=== PATIENT | female | born 1960 | race Caucasian/White ===

== ENCOUNTER 2018-12-31 15:07 | Outpatient (REF) | payer BC, SELFPAY ==
--- NOTE | 2018-12-31 14:00 | PAPFT_PTH ---
PATIENT: Makenna Darling LOC: [facility] U#:[id number] AGE/SX: 58/F ROOM: RE12/31/[address]: Lina Sepulveda : 1960 BED: DIS: 12/31/2018 SPEC #: [id number] RECD: 12/31/18 17:05 STATUS: RADHA TURCIOS #: [id number] ELI: 12/31/18 14:[address]: Lina Sepulveda DEPT: [facility] Cytology RECD BY: Jewels Aden ENTERED: 12/31/18 17:05 SP TYPE: PAPFT OTHR DR: Neftali Wood Tissues: 1 - CX/ENDOCX FOR PAP SMEARS Procedures: PAP THIN PREP/[facility] Screening HPV DNA PROBE Comments: [id number]
== END 2018-12-31 15:27 ==
LOC: LBN 15:07
PROVIDERS: PCP Internal Medicine; Visit Provider Obstetrics & Gynecology Gynecology
DX: Z12.4 Encounter for screening for malignant neoplasm of cervix (principal); Z11.51 Encounter for screening for human papillomavirus (HPV)
CPT/HCPCS: 88142; 87624

== ENCOUNTER 2019-02-04 02:25 | Outpatient (CLI) | payer BC, SELFPAY ==
--- NOTE | 2019-02-04 15:30 | DI.MAMMO_ITS ---
SYMPTOMS/DIAGNOSIS: SCREENING, Z12.31 MAMMOGRAMS: Mammograms were interpreted according to the usual protocol including computer analysis with CAD system, tomosynthesis and C view imaging. The breasts are of moderate density with fairly symmetrical distribution of fibroglandular tissue. No dominant mass or clumped microcalcification is identified in either breast. Current examination is compared with the previous examinations including October 2017 and there has been no gross interval change in appearance in comparison with the previous studies. CONCLUSION: No specific evidence of malignancy at this time. Routine screening examinations are suggested at yearly intervals due to the family history of breast carcinoma. Category 1, breast density category B. MQSA ASSESSMENT OF FINDINGS: Negative. Category 1. Patient will receive a letter notifying them of these results. BI-RADS category B. There are scattered areas of fibroglandular density.
== END 2019-02-04 02:45 ==
PROVIDERS: PCP Internal Medicine; Visit Provider Obstetrics & Gynecology Gynecology
DX: Z12.31 Encounter for screening mammogram for malignant neoplasm of breast (principal); Z80.3 Family history of malignant neoplasm of breast
CPT/HCPCS: 77063; 77067

== ENCOUNTER 2020-05-25 03:38 | Outpatient (CLI) | payer BC, SELFPAY ==
--- NOTE | 2020-05-25 14:30 | DI.MAMMO_ITS ---
EXAM: MG MAMMO SCREENING CLINICAL HISTORY: screening TECHNIQUE: Bilateral full field digital CC and MLO mammographic images were obtained with 3D tomosyn thesis and utilizing computer aided detection (CAD). COMPARISON: Available for comparison. FINDINGS: Masses/Architectural Distortion: None seen. Microcalcifications: No suspicious pleomorphic-type are seen. Skin Thickening/Nipple Retraction: None. IMPRESSION: 1. No significant interval change with no specific features of malignancy noted. 2. Unless there is more urgent need, screening mammography is recommended, as per [employer] guidelines. BI-RADS Category 1 - Negative Breast Density - Category B - Scattered areas of fibroglandular density A negative radiographic report should not delay biopsy if a dominant or clinically suspicious mass is present. Up to ten percent of cancers are not identified on mammography. A negative report may reinforce clinical impression. Adenosis and dense breasts may obscure an underlying neoplasm. False positive reports average 6 to 10%. Patient will receive a letter notifying them of these results.
== END 2020-05-25 03:58 ==
PROVIDERS: PCP Internal Medicine; Visit Provider Nurse Practitioner Family
DX: Z12.31 Encounter for screening mammogram for malignant neoplasm of breast (principal); R92.2 Inconclusive mammogram
CPT/HCPCS: 77063; 77067

== ENCOUNTER 2021-09-09 21:27 | Outpatient (REF) | payer BC, SELFPAY | END 2021-09-09 21:28 | disposition home or self-care (01) | LOC: LBN 21:27 | PROVIDERS: PCP Internal Medicine; Visit Provider Obstetrics & Gynecology Gynecology | DX: R30.0 Dysuria (principal) | CPT/HCPCS: 87086 ==

== ENCOUNTER 2021-10-03 00:44 | Outpatient (CLI) | payer BC, SELFPAY ==
--- OUTSIDE RECORDS SUMMARY | 2021-10-03 00:47 | XMS_ITS ---
:1960 Author Care Team Providers Name Role Phone NARGIS OVALLE MD General Surgeon [phone] KAYE PHELPS MD Oil Heat Technician [phone] NEFTALI LEMUS DO Primary Care Provider [phone] Allergies Code Code System Name Reaction Severity Status Onset 241106 RxNorm Bactrim Other ? Active ? 57476 RxNorm Benzonatate Other ? Active ? 612758 RxNorm Cipro Hives ? Active ? Penicillins Rash ? Active ? 706452 RxNorm Plavix Rash ? Active ? Notes: No seafood allergy. No co ntrast allergy. Medications Name Status Start Date Stop Date ? ? Afluria Qd 2018- (36 mos Completed ? 12/02 up)(PF)60 mcg (15 mcg x4)/0.5 mL IM syringe amoxicillin 500 mg capsule Completed 07/24/200607/24 1 (one) Cap: three times a day aspirin 325 mg tablet Active ? Not availa ble Take 0.5 tablets every day by oral route in the morning. aspirin 81 mg tablet,delayed release Completed ? 08/02/2020 Take 2 tablets every day by oral route. atorvastatin 20 mg tablet Active ? Not av ailable 1 (one) Tablet: daily atorvastatin 40 mg tablet Active ? Not av ailable 1 tablet every day by oral route Aygestin 5 mg tablet Completed 01/16/2012 01/16/2012 1-3 Tablet: daily azithromycin 250 mg tablet Completed ? 06/22 Bactrim DS 800 mg-160 mg tablet Completed 11/25/2007 12/02/2007 1 (one) Tablet: Twice daily bupropion HCl SR 200 mg tablet,12 hr sustained-release Active ? Not available TAKE ONE TABLET BY MOUTH EVERY DAY DIRECTED cefuroxime axetil 500 mg tablet Active ? Not available cetirizine 10 mg tablet Active ? Not avai lable Take 1 tablet every day by oral route for 30 days. Cipro 500 mg tablet Completed 05/15/2010 05/22/2010 1 (one) Tablet: Twice daily ciprofloxacin 250 mg tablet Completed ? 11/04 codeine 10 mg-guaifenesin 100 mg/5 mL oral liquid Completed ? 06/22/2018 Take 10 mL every 6 hours by oral route as needed. doxycycline hyclate 100 mg tablet Completed ? 06/22/2018 doxycycline monohydrate 100 mg Completed ? 0 06/22/2018 capsule E-Z Spacer Completed 04/14/2011 04/14/2011 1 (one) Device: as needed ezetimibe 10 mg tablet Active ? Not avail able Take 1 tablet(s) every day by oral route. Flovent HFA 110 mcg/actuation aerosol inhaler Completed 04/14/2011 2 (two) puff(s): two times daily fluticasone propionate 50 Active ? Not av ailable mcg/actuation nasal spray,suspension folic acid 400 mcg tablet Active ? Not av ailable Take 1 tablet every day by oral route in the morning. FreeStyle Test strips Active ? Not availa ble USE AND DISCARD 1 TEST STRIP 4-6 TIMES A DAY DIRECTED Humalog U-100 Insulin Active ? Not availa ble 70 units /day SQ via continuous insulin pump with carb of 1-10 per [facility] endocrinology Humalog U-100 Insulin 100 unit/mL subcutaneous solution Active ? Not available INJECT 70 UNITS SUBCUTANEOU SLY PER DAY AND NEEDED VIA CONTINUOUS INSULIN PUMP WITH 1-10 GRAMS OF CARBOHYDRATES Iron (ferrous sulfate) 325 mg (65 mg iron) tablet Completed 01/16/2012 01/16/2012 1 Tablet: daily Keflex 500 mg capsule Completed 01/01/2005 04/04/2005 1 (one) Cap: TID levofloxacin 500 mg tablet Completed ? 06/22 levothyroxine 150 mcg tablet Active 06/19/2021 Not available Take 1 tablet every day by oral route. levothyroxine 175 mcg tablet Completed ? lisinopril 10 mg tablet Active ? Not avai lable TAKE ONE TABLET BY MOUTH EVERY DAY lisinopril 20 mg tablet Completed ? 12/15/19 19 0.5 tablets once a day loratadine Completed ? 06/22/2018 Twice a day lorazepam 0.5 mg tablet Active ? Not avai lable 1 tablet as needed prior to flying meclizine 25 mg tablet Completed 09/23/2011 1 1 (one) Tablet: three times daily, as needed metoprolol tartrate 50 mg tablet Active ? Not available TAKE ONE TABLET BY MOUTH TWICE A DAY multivitamin Active ? Not available Take 1 tablet every morning nitrofurantoin Completed ? 12/02/2019 monohydrate/macrocrystals 100 mg capsule nitroglycerin 0.4 mg sublingual tablet Completed 8 02/07/2011 1 (one) SL Tab: Q 5 MIN X 3 PRN omeprazole 20 mg capsule,delayed release Active ? Not available Take 1 capsule every day by oral route. OTC OneTouch Ultra Blue Test Strip Completed 03/22/2009 0 11/09/2009 1 Strip: daily and as directed pen needle, diabetic 31 gauge x 5/16 Completed 03/13/2009 11/09/2009 1 (one) Misc: as directed phenazopyridine 200 mg tablet Completed ? prednisone 20 mg tablet Completed 03/20/2017 03/26/20 17 1 (one) Tablet: as directed prochlorperazine maleate 10 mg tablet Completed 10/10/2008 10/10/2008 1 (one) Tablet: Two times daily as needed for nausea Pyridium 100 mg tablet Completed 06/20/2013 3 1 Tablet: tid - three times a day Shingrix (PF) 50 mcg/0.5 mL Completed ? 11/04 intramuscular suspension, kit simvastatin 20 mg tablet Completed 01/04/2016 016 1 (one) Tablet: at bedtime tobramycin 0.3 %-dexamethasone Completed ? 0 07/29/2019 0.1 % eye drops,suspension triamcinolone acetonide 0.1 % topical cream Active ? Not available APPLY A THIN LAYER TOPICALLY TO AFFECTED AREA(S) TWO TIMES A DA Y Victoza 2-Blaze 0.6 mg/0.1 mL (18 mg/3 mL) subcutaneous pen in jector Completed 02/02/2015 02/22/2016 1.8 Soln Pen-inj: every day Vitamin B-6 100 mg tablet Active ? Not av ailable Take 1 tablet every day by oral route in the morning. Vitamin B12 500 mcg tablet Active ? Not a vailable Take 1 tablet every day by oral route in the morning. Vitamin D3 25 mcg (1,000 unit) capsule Active ? Not available Take 2 capsules every day by oral route in the morning. Xopenex HFA 45 mcg/actuation aerosol inhaler Completed 04/14/2011 1-2 (one to two) Puff(s): four times daily, as needed Problems Name Status Onset Date Source ? Pain of Left Shoulder Joint Active 07/29/2019 ? Hypothyroidism Active ? History Disorder of Kidney Due to Diabetes Active ? History Mellitus Diabetes Mellitus Unknown ? History Hyperlipidemia Active ? History Hypocalcemia Unknown ? History Simple Obesity Active ? History Anemia Active ? History Carpal Tunnel Syndrome Active ? History Neuropathy Due to Diabetes Mellitus Active ? History Hypertensive Disorder Active ? History Chronic Ischemic Heart Disease Active ? H istory Sinusitis Unknown ? History Allergic Rhinitis Active ? History Disorder of Upper Respiratory System Unknown ? History Cystitis Active ? History Onycholysis Unknown ? History Epidermoid Cyst of Skin Active ? History Lack of Energy Unknown ? History Cough Unknown ? History History of Urinary Tract Infection Unknown ? History Adult Health Examination Unknown ? History SNOMED CT Concept Unknown ? History Urogenital Finding Unknown ? History Foreign Body in Left Ear Unknown ? History Atherosclerosis of Coronary Artery Active ? History without Angina Pectoris Impingement Syndrome of Left Shoulder Active ? History Region Difficulty Speaking Unknown ? History Finding of Esophagus Unknown ? History Hyperglycemia Due to Type 1 Diabetes Active ? History Mellitus Enzyme Level - Finding Unknown ? History Pain of Right Shoulder Joint Active ? His tory Tendon Finding Unknown ? History Procedures Date Name Performed by ? 08/10/2020 Trigger FInger Information not avai lable Notes: R 3rd digit A1 alexis release 09/12/2019 Cyst Excision Information not avai lable Notes: Done in OR, right axillary cys t. 12/18/2017 Colonoscopy Information not avai lable Notes: polyp 09/19/2016 Trigger FInger Information not avai lable Notes: left middle finger 04/02/2001 Cardiac Catheterization Information not available ? Thyroidectomy Information not avai lable 06/22/2018 CT, Sinuses, W/o Contrast [facility] Rad[facility] (Internal) [address], [place] [address] (Work Place) 11/08/2018 US, Abdomen, Limited [facility] (Internal) [address], [place] [id number] (Work Place) 07/29/2019 XR, Shoulder, [address] [facility] Radiology (Internal) [address] [place] [address] (Work [address]) 08/15/2019 US, Bladder [facility]) [address] [place] [address] (Work [address]) 01/23/2020 XR, Chest, 2 View [facility] [address] [place] [address] (Work Place) 01/23/2020 XR, Chest, 1 View [facility] ([facility]) [address] [place] [address] (Work Place) Results Lab Results Date Name Specimen Result Interpretation Description Value Range Status Address ? 01/08/2021 HbA1C BLD High Ha1C 9.7 % 4.0-6.0 % Final [facility] (Hemoglobin Count ry a1C), Blood Hospi [facility] Lab (Internal) : [address] 01/08/2021 Lipid Panel, S ? Chol 109 50-200 Final [facility] Serum mg/dL mg/dL [facility] ([facility] : [address] ? ? S ? Trig 113 10-150 Final [facility] mg/dL mg/dL [facility] L [facility] (Internal) : [address] ? ? S Low Hdl 30 40-60 Final [facility] mg/dL mg/dL [facility] (Internal) : [address] ? ? S ? Ldl 56 0-130 Final [facility] mg/dL mg/dL [facility] (Internal) : [address] 01/08/2021 Hepatic S ? Tbil 0.6 0.2-1.3 Final Nort h Function mg/dL mg/dL [facility] Panel, Serum Hosp ital Lab (Internal) : [address] ? ? S ? Dbil 0.1 0.0-0.3 Final [facility] mg/dL mg/dL [facility] (Internal) : [address] ? ? S ? Alp 104 U/L 38-126 Final [facility] U/L [facility] (Internal) : [address] ? ? S High Alt 74 U/L 9-52 U/L Final [place] (Sgpt) [facility] (Internal) : [address] ? ? S High Ast 51 U/L 14-36 U/L Final [place] (Sgot) [facility] ([facility] : [address] ? ? S ? Ggt 28 U/L 12-43 U/L Final [facility] (Internal) : [address] ? ? S ? Tp 7.1 6.3-8.2 Final [facility] g/dL g/dL [facility] ([facility] : [address] ? ? S ? Alb 4.1 3.5-5.0 Final [facility] g/dL g/dL [facility] ([facility] : [address] 01/08/2021 BMP, Serum or S High g/r 179 74-106 Final [facility] Plasma mg/dL mg/dL [facility] ([facility] : [address] ? ? S High Bun 18 7-17 Final [facility] mg/dL mg/dL [facility] (Internal) : [address] ? ? S ? Crea 1.00 0.52-1.04 Final [facility] mg/dL mg/dL [facility] (Internal[facility] : [address] ? ? S ? Ca 8.6 8.4-10.2 Final [facility] mg/dL mg/dL [facility] (Internal) : [address] ? ? S ? Na 139 137-145 Final [facility] mmol/L mmol/L [facility] (Internal) : [address] ? ? S ? K 4.4 3.5-5.1 Final [facility] mmol/L mmol/L [facility] (Internal) : [address] ? ? S ? Cl 99 98-107 Final [facility] mmol/L mmol/L [facility] ([facility]) : [address] ? ? S ? Tco2 29.0 22.0-30.0 Final [facility] mmol/L mmol/L [facility] (Internal[facility] : [address] 10/10/2020 EKG Done by ? No ? ? ? N orth Lab observat [facility] recorded (Interna l): . [address] 10/05/2020 Lipid Panel, S ? Chol 103 50-200 Final [facility] Serum mg/dL mg/dL [facility] (Internal) : [address] ? ? S ? Trig 85 10-150 Final [facility] mg/dL mg/dL [facility] (Internal) : [address] ? ? S Low Hdl 34 40-60 Final [facility] mg/dL mg/dL [facility] (Internal) : [address] ? ? S ? Ldl 52 0-130 Final [facility] mg/dL mg/dL [facility] (Internal) : [address] 10/05/2020 Hepatic S ? Tbil 0.8 0.2-1.3 Final Nort h Function mg/dL mg/dL [facility] Panel, Serum Hosp ital Lab (Internal) : [address] ? ? S ? Dbil 0.0 0.0-0.3 Final [facility] mg/dL mg/dL [facility] (Internal) : [address] ? ? S High Alp 127 U/L 38-126 Final [facility] U/L [facility] (Internal) : [address] ? ? S High Alt 72 U/L 9-52 U/L Final [place] (Sgpt) [facility] (Internal) : [address] ? ? S High Ast 54 U/L 14-36 U/L Final [place] (Sgot) [facility] (Internal) : [address] ? ? S ? Ggt 31 U/L 12-43 U/L Final [facility] (Internal) : [address] ? ? S ? Tp 7.2 6.3-8.2 Final [facility] g/dL g/dL [facility] ([facility] : [address] ? ? S ? Alb 4.2 3.5-5.0 Final [facility] g/dL g/dL [facility] [address] [facility] 06/05/2020 BMP, Serum or S High g/r 191 74-106 Final [facility] Plasma mg/dL mg/dL [facility] ([facility] : [address] ? ? S ? Bun 15 7-17 Final [facility] mg/dL mg/dL [facility] ([facility] : [address] ? ? S ? Crea 0.90 0.52-1.04 Final [facility] mg/dL mg/dL [facility] ([facility] : [address] ? ? S ? Ca 8.5 8.4-10.2 Final [facility] mg/dL mg/dL [facility] ([facility]) : [address] ? ? S ? Na 139 137-145 Final [facility] mmol/L mmol/L [facility] ([facility]) : [address] ? ? S ? K 4.2 3.5-5.1 Final [facility] mmol/L mmol/L [facility] ([facility] : [address] ? ? S ? Cl 104 98-107 Final [facility] mmol/L mmol/L [facility] ([facility] : [address] ? ? S ? Tco2 27.0 22.0-30.0 Final [facility] mmol/L mmol/L [facility] ([facility] : [address] 06/05/2020 HbA1C BLD High Ha1C 8.9 % 4.0-6.0 % Corrected [facility] (Hemoglobin Count ry a1C), Blood Hospi vaughn Lab (Internal) : [address] 06/05/2020 TSH, Serum or S Low Tsh 0.19 0.47-4.68 Fin al [facility] Plasma u[IU]/m u[IU]/mL [facility] (Internal[facility] : [address] 04/27/2020 EKG Done by ? No ? ? ? N orth Lab observat [facility] recorded (Interna l): . [address] 09/13/2019 CBC W/ Auto BLD - Wbc 7.0 5.0-10.0 Final [place] Diff 10*3/uL 10*3/uL [facility] (Internal[facility] : [address] ? ? BLD - Rbc 4.61 4.10-5.30 Final [place] 10*6/uL 10*6/uL [facility] (Internal) : [address] ? ? BLD - Hgb 13.3 12.0-16.0 Final [place] g/dL g/dL [facility] (Internal) : [address] ? ? BLD - Hct 38.8 % 37.0-47.0 Final [place] % [facility] (Internal) : [address] ? ? BLD - Mcv 84.2 fL 80.0-96.0 Final [facility] L [facility] (Internal) : [address] ? ? BLD - Mch 28.9 pg 26.0-32.0 Final [facility] L [facility] (Internal) : [address] ? ? BLD - Mchc 34.3 31.0-35.0 Final [place] g/dL g/dL [facility] (Internal) : [address] ? ? BLD - Rdw 12.5 % 11.5-14.5 Final [facility] L [facility] (Internal) : [address] ? ? BLD - Plt 287 130-450 Final [place] 10*3/uL 10*3/uL [facility] (Internal) : [address] ? ? BLD - Anc 3.59 ? Final [place] 10*3/uL [facility] (Internal) : [address] ? ? BLD - Neutro 51.5 % 40.0-75.0 Final [facility] (Internal) : [address] ? ? BLD - Lymph 36.4 % 20.0-50.0 Final [facility] L [facility] (Internal) : [address] ? ? BLD - [place] 6.8 % 2.0-10.0 Final [facility] L [facility] (Internal) : [address] ? ? BLD - Eos 4.3 % 1.0-6.0 % Final [facility] : [address] ? ? BLD - Baso 0.9 % 0.0-1.0 % Final [facility] (Internal) : [address] ? ? BLD - Ig 0.1 % 0.0-0.9 % Final [facility] (Internal) : [address] 09/13/2019 CMP, Serum or S High g/r 208 74-106 Final [facility] Plasma mg/dL mg/dL [facility] (Internal) : [address] ? ? S High Bun 18 7-17 Final [facility] mg/dL mg/dL [facility] (Internal) : [address] ? ? S - Crea 0.90 0.52-1.04 Final [place] mg/dL mg/dL [facility] (Internal) : [address] ? ? S - Ca 8.4 8.4-10.2 Final [facility] mg/dL mg/dL [facility] (Internal) : [address] ? ? S - Na 138 137-145 Final [facility] mmol/L mmol/L [facility] ([facility]) : [address] ? ? S - K 4.3 3.5-5.1 Final [facility] mmol/L mmol/L [facility] (Internal) : [address] ? ? S - Cl 102 98-107 Final [facility] mmol/L mmol/L [facility] (Internal) : [address] ? ? S - Tco2 26.0 22.0-30.0 Final [facility] mmol/L mmol/L [facility] (Internal) : [address] ? ? S - Tp 7.0 6.3-8.2 Final [facility] g/dL g/dL [facility] (Internal) : [address] ? ? S - Alb 3.8 3.5-5.0 Final [facility] g/dL g/dL [facility] (Internal) : [address] ? ? S - Tbil 0.4 0.2-1.3 Final [facility] mg/dL mg/dL [facility] ([facility] : [address] ? ? S - Alp 118 U/L 38-126 Final [place] U/L [facility] L [facility] (Internal) : [address] ? ? S High Alt 59 U/L 9-52 U/L Final [place] (Sgpt) [facility] (Internal) : [address] ? ? S High Ast 45 U/L 14-36 U/L Final [place] (Sgot) [facility] (Internal) : [address] 09/13/2019 Troponin I, S - Trop <0.06 0.00-0.06 Final [place] Serum or NG/mL NG/mL [facility] Hospital L ab (Internal) : [address] [facility] 09/13/2019 Lipase, Serum S - Lip 118 U/L 23-300 Final [place] or Plasma U/L [facility] L [facility] (Internal) : [address] 09/13/2019 D-dimer, PLASMA - Dimq 0.26 0.00-0.50 Final N orth Quant, Plasma mg/L mg/L [facility] [address] 09/13/2019 Prothrombin BLD - Pt 10.6 S 9.1-11.7 Final [place] Time [facility] L [facility] (Internal) : [address] ? ? BLD - Inr 1.1 ? Final [facility] L [facility] (Internal) : [address] 09/13/2019 Troponin I, S - Trop <0.06 0.00-0.06 Final [place] Serum or NG/mL NG/mL [facility] Hospital L [facility] (Internal) : [address] 08/11/2019 Urinalysis, UR - UA-colo pale pale Final [place] Dipstick, r yellow yellow [facility] Reflex Micro Hosp ital Lab (Internal) : [address] ? ? UR ABNORMAL UA-appe hazy clear Final [facility] (Internal) : [address] ? ? UR - UA-spec <=1.005 1.003-1.0 Final Nort h Grav 35 [facility] (Internal) : [address] ? ? UR - UA-pH 6.0 4.6-8.0 Final [place] [pH] [pH] [facility] (Internal) : [address] ? ? UR ABNORMAL UA-leuk moderat negative Final Nor th Est [facility] (Internal) : [address] ? ? UR - UA-nitr negativ negative Final [place] ite [facility] (Internal) : [address] ? ? UR - UA-prot negativ negative Final [facility] (Internal) : [address] ? ? UR - UA-gluc negativ negative Final [facility] (Internal) : [address] ? ? UR - UA-keto negativ negative Final [facility] (Internal) : [address] ? ? UR - UA-urob normal normal Final [facility] (Internal) : [address] ? ? UR - UA-bili negativ negative Final [facility] (Internal) : [address] ? ? UR ABNORMAL UA-bloo large negative Final Nort h d [facility] (Internal) : [address] 08/11/2019 Urinalysis, UR ABNORMAL UA-WBC 50-100 0-3 [hpf] [facility] Microscopic [hpf] Count [facility] (Internal) : [address] ? ? UR ABNORMAL UA-RBC 25-50 0-2 [hpf] Final Nort h [hpf] [facility] (Internal) : [address] ? ? UR - UA-bact rare none seen Final [place] eria [hpf] [hpf] [facility] (Internal) : [address] ? ? UR - UA-epit rare none seen Final [place] helial [hpf] [hpf] [facility] (Internal) : [address] ? ? UR - UA-mucu none none seen Final [place] s seen [hpf] [facility] [hpf] Hospital L ab (Internal) : [address] 08/11/2019 Culture UR - Final microbi ? Final Nort h ([place] [facility] Count), Urine results Ho spital Lab (Internal) : [address] 08/03/2019 Urinalysis, UR - UA-colo yellow pale Final [place] Dipstick, r yellow [facility] Reflex Micro Hosp ital Lab (Internal) : [address] ? ? UR - UA-appe clear clear Final [facility] Hospital L ab (Internal) : [address] ? ? UR ABNORMAL UA-gluc trace negative Final Nort h [facility] ab (Internal) : [address] ? ? UR - UA-bili negativ negative Final [facility] ab (Internal) : [address] ? ? UR - UA-keto negativ negative Final [facility] ab (Internal) : [address] ? ? UR - UA-spec <1.005 1.003-1.0 Final [place] Grav 35 [facility] L ab (Internal) : [address] ? ? UR - UA-bloo negativ negative Final [facility] ab (Internal) : [address] ? ? UR - UA-pH 6.0 4.6-8.0 Final [place] [pH] [pH] [facility] L [facility] (Internal) : [address] ? ? UR - UA-prot negativ negative Final [facility] (Internal) : [address] ? ? UR - UA-urob normal normal Final [facility] (Internal) : [address] ? ? UR - UA-nitr negativ negative Final [place] ite [facility] (Internal) : [address] ? ? UR - UA-leuk negativ negative Final [place] Est [facility] ab (Internal) : [address] 08/03/2019 Culture UR - Final microbi ? Final Nort h ([place] [facility] Count), Urine results Ho spital Lab (Internal) : [address] 11/16/2018 Lipid Panel, S - Chol 128 50-200 Final [place] Serum mg/dL mg/dL [facility] (Internal) : [address] ? ? S - Trig 74 10-150 Final [place] mg/dL mg/dL [facility] (Internal) : [address] ? ? S Low Hdl 39 40-60 Final [place] mg/dL mg/dL [facility] (Internal) : [address] ? ? S - Ldl 74 0-130 Final [place] mg/dL mg/dL [facility] (Internal) : [address] 11/16/2018 Hepatic S - Tbil 0.8 0.2-1.3 Final Nort h Function mg/dL mg/dL [facility] Panel, Serum Hosp ital Lab (Internal) : [address] ? ? S High Dbil 0.4 0.0-0.3 Final [place] mg/dL mg/dL [facility] (Internal) : [address] ? ? S - Alp 110 U/L 50-136 Final [place] U/L [facility] (Internal) : [address] ? ? S High Alt 55 U/L 9-52 U/L Final [place] (Sgpt) [facility] (Internal) : [address] ? ? S High Ast 43 U/L 14-36 U/L Final [place] (Sgot) [facility] (Internal) : [address] ? ? S - Ggt 25 U/L 12-43 U/L [facility] (Internal) : [address] ? ? S - Tp 7.1 6.3-8.2 Final [place] g/dL g/dL [facility] (Internal) : [address] ? ? S - Alb 4.2 3.5-5.0 Final [place] g/dL g/dL [facility] (Internal) : [address] 01/11/2018 Venipuncture BLD ? Venpn* ? ? Final [facility] (Internal) : [address] 01/11/2018 Vitamin D, S ? 25-Hydr <4.0 ? Final [place] 25-Hydroxy, oxy D2 NG/mL Count ry Total, Serum Hosp ital Lab (Internal) : [address] ? ? S ? 25-Hydr 28 ? Final [place] oxy D3 NG/mL [facility] (Internal) : [address] ? ? S ? 25-Hydr 28 ? Final [facility] oxy D NG/mL [facility] Total Hospital L [facility] (Internal) : [address] 01/11/2018 TSH, Serum or S Low Tsh 0.23 0.47-4.68 Fin al [facility] Plasma u[IU]/m u[IU]/mL [facility] (Internal) : [address] 01/11/2018 BMP, Serum or S High g/r 195 74-106 Final [place] Plasma mg/dL mg/dL [facility] ([facility]) : [address] ? ? S High Bun 19 7-17 Final [place] mg/dL mg/dL [facility] (Internal) : [address] [address] ? ? S ? Crea 0.90 0.52-1.04 Final [facility] mg/dL mg/dL [facility] : [address] ? ? S ? Ca 9.2 8.4-10.2 Final [place] mg/dL mg/dL [facility] : [address] ? ? S Low Na 136 137-145 Final [facility] mmol/L mmol/L [facility] ([facility] : [address] ? ? S ? K 4.3 3.5-5.1 Final [place] mmol/L mmol/L [facility] ([facility] : [address] ? ? S Low Cl 97 98-107 Final [place] mmol/L mmol/L [facility] ([facility]) : [address] t ? ? S ? Tco2 26.0 22.0-30.0 Final [place] mmol/L mmol/L [facility] ([facility]) : [address] 01/11/2018 CBC W/ Auto BLD ? Wbc 8.9 5.0-10.0 Final [place] Diff 10*3/uL 10*3/uL [facility] ([facility]) : [address] ? ? BLD ? Rbc 4.71 4.10-5.30 Final [place] 10*6/uL 10*6/uL [facility] ([facility]) : [address] ? ? BLD ? Hgb 13.5 12.0-16.0 Final [place] g/dL g/dL [facility] ([facility]) : [address] ? ? BLD ? Hct 40.3 % 37.0-47.0 Final [facility] % [facility] ([facility]) : [address] ? ? BLD ? Mcv 85.6 fL 80.0-96.0 Final [facility] fL [facility] ([facility]) : [address] ? ? BLD ? Mch 28.7 pg 26.0-32.0 Final [place] pg [facility] ([facility]) : [address] ? ? BLD ? Mchc 33.5 31.0-35.0 Final [place] g/dL g/dL [facility] ([facility]) : [address] ? ? BLD ? Rdw 12.4 % 11.5-14.5 Final [facility] % [facility] ([facility]) : [address] ? ? BLD ? Plt 317 130-450 Final [place] 10*3/uL 10*3/uL [facility] ([facility]) : [address] ? ? BLD ? Anc 5.25 ? Final [place] 10*3/uL [facility] ([facility]) : [address] ? ? BLD ? Neutro 59.0 % 40.0-75.0 Final [facility] % [facility] ([facility]) : [address] ? ? BLD ? Lymph 27.8 % 20.0-50.0 Final North % [facility] (Internal) : [address] ? ? BLD ? [place] 7.5 % 2.0-10.0 Final [place] [facility] (Internal) : [address] ? ? BLD ? Eos 4.6 % 1.0-6.0 % Final [facility] (Internal) : [address] ? ? BLD ? Baso 0.9 % 0.0-1.0 % Final [facility] (Internal) : [address] ? ? BLD ? Ig 0.2 % 0.0-0.9 % Final [facility] (Internal) : [address] 01/11/2018 CRP, High S High Rcrp 5.26 0.10-0.30 Final [place] Sensitivity, mg/dL mg/dL Coun try Serum or Hospital Lab Plasma (Internal) : [address] 12/18/2017 Pathology TISS ? Report results ? Final N orth Study below [facility] (Internal) : [address] 11/16/2017 Venipuncture BLD ? Venpn* ? ? Final [facility] (Internal) : [address] 11/16/2017 BMP, Serum or S High g/r 284 74-106 Final [place] Plasma mg/dL mg/dL [facility] (Internal) : [address] ? ? S High Bun 20 7-17 Final [place] mg/dL mg/dL [facility] (Internal) : [address] ? ? S ? Crea 0.80 0.52-1.04 Final [place] mg/dL mg/dL [facility] (Internal) : [address] ? ? S ? Ca 8.5 8.4-10.2 Final [place] mg/dL mg/dL [facility] (Internal) : [address] ? ? S ? Na 140 137-145 Final [place] mmol/L mmol/L [facility] (Internal) : [address] ? ? S ? K 4.5 3.5-5.1 Final [place] mmol/L mmol/L [facility] (Internal) : [address] ? ? S ? Cl 102 98-107 Final [place] mmol/L mmol/L [facility] (Internal) : [address] ? ? S ? Tco2 28.0 22.0-30.0 Final [place] mmol/L mmol/L [facility] (Internal) : [address] 02/06/2017 Venipuncture BLD ? Venpn* ? ? Final [facility] ([facility]) : [address] 02/06/2017 Hepatic S ? Tbil 0.6 0.2-1.3 Final Nort h Function mg/dL mg/dL [facility], Serum Hosp ital Lab (Internal) : [address] ? ? S ? Dbil 0.2 0.0-0.3 Final [place] mg/dL mg/dL [facility] (Internal) : [address] ? ? S High Alp 163 U/L 50-136 Final North U/L [facility] (Internal) : [address] ? ? S High Alt 62 U/L 9-52 U/L Final [place] (Sgpt) [facility] (Internal) : [address] ? ? S High Ast 40 U/L 14-36 U/L Final [place] (Sgot) [facility] (Internal) : [address] ? ? S ? Ggt 33 U/L 12-43 U/L Final [facility] ([facility] : [address] ? ? S ? Tp 6.9 6.3-8.2 Final [place] g/dL g/dL [facility] (Internal) : [address] ? ? S ? Alb 3.9 3.5-5.0 Final [place] g/dL g/dL [facility] (Internal) : [address] 02/06/2017 BMP, Serum or S High g/r 423 74-106 Final [place] Plasma mg/dL mg/dL [facility] (Internal) : [address] ? ? S High Bun 20 7-17 Final [place] mg/dL mg/dL [facility] (Internal) : [address] ? ? S ? Crea 0.80 0.52-1.04 Final [place] mg/dL mg/dL [facility] (Internal) : [address] ? ? S Low Ca 8.2 8.4-10.2 Final [place] mg/dL mg/dL [facility] (Internal) : [address] ? ? S ? Na 138 137-145 Final [place] mmol/L mmol/L [facility] (Internal) : [address] ? ? S ? K 4.8 3.5-5.1 Final [place] mmol/L mmol/L [facility] (Internal) : [address] ? ? S ? Cl 99 98-107 Final [place] mmol/L mmol/L [facility] (Internal) : [address] ? ? S ? Tco2 28.0 22.0-30.0 Final [place] mmol/L mmol/L [facility] (Internal) : [address] 02/06/2017 TSH, Serum or S Low Tsh 0.25 0.47-4.68 Fin al [place] Plasma u[IU]/m u[IU]/mL [facility] ([facility] : [address] 01/12/2017 Venipuncture BLD ? Venpn* ? ? Final [facility] ([facility]) : [address] 01/12/2017 Lipid Panel, S ? Chol 114 50-200 Final [place] Serum mg/dL mg/dL [facility] (Internal) : [address] ? ? S ? Trig 87 10-150 Final [place] mg/dL mg/dL [facility] (Internal) : [address] ? ? S Low Hdl 32 40-60 Final [place] mg/dL mg/dL [facility] (Internal) : [address] ? ? S ? Ldl 65 0-130 Final [place] mg/dL mg/dL [facility] (Internal) : [address] t 12/13/2016 Culture, UR ? Final microbi ? Final Nor th Urine ology [facility] (Internal) : [address] 12/13/2016 Urinalysis, UR ABNORMAL UA-WBC 50-100 0-3 [hpf] Fi nal [place] Microscopic [hpf] [facility] : [address] ? ? UR ABNORMAL UA-RBC 10-25 0-2 [hpf] Final Nort h [hpf] [facility] (Internal) : [address] ? ? UR ABNORMAL UA-bact few none seen Final Nor th eria [hpf] [hpf] [facility] (Internal) : [address] ? ? UR ABNORMAL UA-epit few none seen Final Nor th helial [hpf] [hpf] [facility] (Internal) : [address] ? ? UR ABNORMAL UA-mucu few none seen Final Nor th s [hpf] [hpf] [facility] (Internal) : [address] ? ? UR ? Amorph few ? Final North Cryst [hpf] [facility] (Internal) : [address] 12/13/2016 Urinalysis, UR ? UA-colo yellow pale Final [place] Dipstick, r yellow [facility] Reflex Micro [facility]osp [facility] Lab (Internal) : [address] ? ? UR ABNORMAL UA-appe hazy clear Final [facility] (Internal) : [address] ? ? UR ? UA-spec <=1.005 1.003-1.0 Final Nort h Grav 35 [facility] (Internal) : [address] ? ? UR ? UA-pH 6.5 4.6-8.0 Final North [pH] [pH] [facility] (Internal) : [address] ? ? UR ABNORMAL UA-leuk moderat negative Final Nor th Est [facility] (Internal) : [address] ? ? UR ? UA-nitr negativ negative Final [place] ite e [facility] (Internal) : [address] ? ? UR ? UA-prot negativ negative Final [place] e [facility] (Internal) : [address] ? ? UR ? UA-gluc negativ negative Final North e [facility] (Internal) : [address] ? ? UR ? UA-keto negativ negative Final [facility] (Internal) : [address] ? ? UR ? UA-urob normal normal Final [facility] (Internal) : [address] ? ? UR ? UA-bili negativ negative Final [facility] (Internal) : [address] ? ? UR ABNORMAL UA-bloo large negative Final Nort h d [facility] (Internal) : [address] t Past Encounters 06/03/2021 Hyperglycemia Due to Type 1 Diabetes Annabelle litus; Anxiety State; Disorder of Kidney Due to Diabetes Mellitus; Hypothyroidism; Elevated Liver Enzymes Level; Pruritic Rash Neftali Lemus, DO: [address] [place] [address], Ph. 05/22/2021 Obstructive Sleep Apnea Syndrome; Hypers omnia; Cramp in Lower Limb Associated with Sleep Kacey Moncada MD, Board Certified Sleep Ph ysician: [address] [place] [address], Ph. 05/13/2021 Oni Garcia MD: [address] [facility], [address], [place] [address], Ph. 01/10/2021 Hyperlipidemia Kaye Phelps MD: [address] [place] [address], Ph. 12/03/2020 Adult Health Examination; Hyperglycemia Due to Type 1 Diabetes Mellitus; Atherosclerosis of Coronary Artery without Angina Pectoris; Chronic Ischemic Heart Disease; Disorder of Kidney Due to Diabetes Me llitus; Hyperlipidemia; Hypothyroidism; Administration of Tetanus Vaccine; Trigger Finger of Right Hand Neftali Lemus, DO: [address] [place] [address], Ph. 11/06/2020 Obstructive Sleep Apnea Syndrome; Hypers omnia; Cramp in Lower Limb Associated with Sleep Kacey Moncada MD, Board Certified Sleep Ph ysician: [address] [place] [address], Ph. 10/08/2020 Kaye Phelps MD: [address] [place] [address], Ph. 08/27/2020 Oni Garcia MD: [address] [address], Ph. 08/20/2020 Oni Garcia MD: [address] [address], Ph. 07/26/2020 Oni Garcia MD: [address] [address], Ph. 06/05/2020 Obstructive Sleep Apnea Syndrome; Hypers omnia; Cramp in Lower Limb Associated with Sleep Kacey Moncada MD, Board Certified Sleep Ph ysician: [address] [place] [address], Ph. 05/30/2020 Oni Garcia MD: [address] [address], Ph. 05/22/2020 Hyperglycemia Due to Type 1 Diabetes Annabelle litus; Hypertensive Disorder; Hypothyroidism; Hyperlipidemia; Trigger Finger of Right Hand Neftali Lemus, DO: [address] [place] [address], Ph. 04/23/2020 Hyperlipidemia Kaye Phelps MD: [address] [place] [address], Ph. Social History Tobacco Smoking Status Former Smoker Notes: started smoking at age 22, 1 ppd. quit 1992 Vaccine List Vaccine Type COVID-19, mRNA, LNP-S, PF, 100 mcg/0.5 m L dose (Moderna) 12/31/2020?0.5 mL 01/28/2021?0.5 mL influenza, injectable, quadrivalent 08/12/2018?0.5 mL 09/07/2019 08/08/2020 influenza, seasonal, injectable 08/26/2005 08/19/2006 08/02/2007 08/16/2008 08/23/2010?0.5 mL 08/27/2011 08/02/2012 08/28/2014 08/15/2015 08/31/2016 influenza, seasonal, injectable, preserv ative free 09/02/2009 novel [id number], all formulation s 09/02/2009 pneumococcal polysaccharide [id number] 08/02/1990 01/28/2007 Td (adult), adsorbed 03/02/2001 12/03/2020 Tdap 11/22/2010?0.5 mL varicella zoster recombinant 07/03/2019 11/03/2019 Plan of Care Patient Instructions You wish to pause on using cpap due to what's happening in your life taking care of your mother who is not well, meanwhile get the RECALL repair. we can also consider titration sleep joe dy in future, hopefully after covid issues down. continue magnesium supplement for leg cr amps 6 month follow up, sooner if needed. try making machine changes as nicolle pickard (using ramp for longer, turned off heated hose, tightening mask as tolerated). the numbers are higher than I'd like and I think it is related to mask seal. we can also consider titration sleep joe dy in future, hopefully after covid issues down. 6 month follow up, sooner if needed. Your sleep study shows Mild Obstruc tive Sleep Apnea and we discussed your treatment options. You expressed good understanding and agreed to proceed with CPAP therapy. We discussed process of initiating thera py, commonly encountered problems and ways to get help and troubleshoot them. I have sent a script for new machine to the following Durable Medical Equipment Provider. Please contact them in 2 week if you do not hear from them by then. [x ] [facility] [place]: [address], [place], [place]; They will make an appointment for you to curing pickling packer the machine and show you how to put on the mask and operate the machine. Making the effort to use your machine ev hong time you sleep is very important, especially as you get used to therapy. Please call them if you have any questions on how to use machine or use your mask. Ca ll them if your mask is not fitting righ t and need to be fitted with a new one. This is important to do as early as possible. Please call Sleep Clinic if you have any other concerns or problems before your next appointment. Remember to bring your entire PAP technician support engineer including mask, hose, and plug to your future appointme nts. This allows me to provide you with the best patient care and address any of your questions/concerns on therapy. Follow up around in 2 months. Reminders Provider Appointments None recorded. ? ? Lab None recorded. ? ? Referral None recorded. ? ? Procedures None recorded. ? ? Surgeries None recorded. ? ? Imaging None recorded. ? ? Vitals 06/03/2021 10:20AM Telehealth 20 Height 155.58 cm 05/22/2021 09:45AM Office 30 Height Weight BMI Blood Pressure 155.58 cm 85.28 kg 35.2 kg/m2 126/64 mm[Hg] 05/13/2021 09:30AM Consult 30 Height Weight BMI 155.58 cm 87.14 kg 36 kg/m2 01/10/2021 11:00AM Follow Up 30 Height Weight BMI Blood Pressure 155.58 cm 88.7 kg 36.6 kg/m2 114/68 mm[Hg] 12/03/2020 10:00AM CPE 40 Height Weight BMI Blood Pressure 155.58 cm 89.44 kg 37 kg/m2 110/60 mm[Hg] 11/06/2020 01:00PM Office 30 Height Weight BMI 155.58 cm 86.18 kg 35.6 kg/m2 07/26/2020 02:00PM Follow Up 30 Height Weight BMI Blood Pressure 155.58 cm 89.18 kg 36.8 kg/m2 110/62 mm[Hg] 06/05/2020 01:30PM Office 30 Height Weight BMI Blood Pressure 155.58 cm 90.26 kg 37.3 kg/m2 103/61 mm[Hg] 05/30/2020 02:00PM Consult 30 Height Weight BMI Blood Pressure 155.58 cm 89.68 kg 37 kg/m2 106/68 mm[Hg] 05/22/2020 12:40PM Follow Up 20 Height Weight BMI Blood Pressure 155.58 cm 90.38 kg 37.3 kg/m2 118/60 mm[Hg] 04/23/2020 09:00AM Consult 60 Height Weight BMI Blood Pressure 155.58 cm 90.6 kg 37.4 kg/m2 117/67 mm[Hg] 02/22/2020 11:30AM New Patient 45 Height Weight BMI 155.58 cm 90.72 kg 37.5 kg/m2 12/02/2019 03:40PM CPE 40 Height Weight BMI Blood Pressure 155.58 cm 94.48 kg 39 kg/m2 92/62 mm[Hg] 08/10/2019 03:00PM Office 15 Height 156.85 cm 08/03/2019 02:20PM Acute 20 Height Weight BMI Blood Pressure 156.85 cm 94.89 kg 38.6 kg/m2 104/72 mm[Hg] 07/29/2019 08:20AM Acute 40 Height Weight BMI Blood Pressure 156.85 cm 93.44 kg 38 kg/m2 104/64 mm[Hg] 11/08/2018 04:20PM CPE 40 Height Weight BMI Blood Pressure 156.85 cm 93.53 kg 38 kg/m2 120/72 mm[Hg] 06/22/2018 01:00PM Acute 20 Height Weight BMI Blood Pressure 156.85 cm 93.58 kg 38 kg/m2 132/74 mm[Hg] 06/11/2018 11:40AM Acute 20 Height Blood Pressure 156.85 cm 110/80 mm[Hg] 01/26/2018 Weight Blood Pressure 94.08 kg 115/64 mm[Hg] 01/11/2018 Weight Blood Pressure 93.35 kg 128/75 mm[Hg] 11/11/2017 Height Weight Blood Pressure 156.85 cm 92.99 kg 120/80 mm[Hg] 11/06/2017 Height Weight Blood Pressure 156.85 cm 93.76 kg 112/68 mm[Hg] 03/20/2017 Blood Pressure 132/84 mm[Hg] 02/06/2017 Height Weight Blood Pressure 155.57 cm 93.17 kg 100/58 mm[Hg] 09/09/2016 Height Weight Blood Pressure 155.57 cm 91.44 kg 122/74 mm[Hg] 07/18/2016 Weight Blood Pressure 91.44 kg 112/64 mm[Hg] 02/22/2016 Height Weight Blood Pressure 155.57 cm 87.09 kg 110/70 mm[Hg] 02/04/2016 Height Weight Blood Pressure 155.57 cm 87.09 kg 104/58 mm[Hg] 01/04/2016 Height Weight Blood Pressure 155.57 cm 87.54 kg 120/70 mm[Hg] 07/24/2015 Weight Blood Pressure 90.95 kg 108/74 mm[Hg] 02/02/2015 Blood Pressure 120/78 mm[Hg] 01/11/2015 Weight Blood Pressure 98.07 kg 124/80 mm[Hg] 07/14/2014 Height Weight Blood Pressure 155.57 cm 98.57 kg 108/70 mm[Hg] 03/29/2014 Weight Blood Pressure 96.39 kg 116/74 mm[Hg] 11/25/2013 Weight Blood Pressure 95.71 kg 110/70 mm[Hg] 06/20/2013 Height Weight Blood Pressure 157.48 cm 99.65 kg 110/72 mm[Hg] 05/26/2013 Height Weight Blood Pressure 157.48 cm 95.98 kg 120/72 mm[Hg] 12/07/2012 Weight Blood Pressure 99.56 kg 126/80 mm[Hg] 11/26/2012 Weight Blood Pressure 99.34 kg 108/78 mm[Hg] 07/23/2012 Height Weight Blood Pressure 157.48 cm 97.61 kg 114/66 mm[Hg] 07/06/2012 Weight Blood Pressure 98.93 kg 124/74 mm[Hg] 01/16/2012 Height Weight Blood Pressure 157.48 cm 90.67 kg (1) 112/70 mm[Hg] (2) 90/70 mm[Hg] 09/23/2011 Height Weight Blood Pressure 157.48 cm 95.44 kg 118/84 mm[Hg] 05/16/2011 Height Weight Blood Pressure 157.48 cm 93.94 kg 116/70 mm[Hg] 04/14/2011 Weight Blood Pressure 90.95 kg 110/70 mm[Hg] 01/13/2011 Weight Blood Pressure 89.45 kg 112/72 mm[Hg] 01/06/2011 Height Weight Blood Pressure 157.99 cm 88.5 kg 100/68 mm[Hg] 11/22/2010 Weight Blood Pressure 90.31 kg 110/62 mm[Hg] 05/15/2010 Weight Blood Pressure 86.36 kg 102/60 mm[Hg] 05/10/2010 Weight Blood Pressure 86.86 kg 114/60 mm[Hg] 11/09/2009 Weight Blood Pressure 88.9 kg 130/70 mm[Hg] 06/18/2009 Weight Blood Pressure 86.64 kg 100/60 mm[Hg] 04/10/2009 Weight Blood Pressure 88 kg 110/78 mm[Hg] 03/13/2009 Weight Blood Pressure 87.54 kg 102/62 mm[Hg] 10/10/2008 Weight Blood Pressure 88.9 kg 110/70 mm[Hg] 04/11/2008 Weight Blood Pressure 87.54 kg 110/62 mm[Hg] 12/14/2007 Weight Blood Pressure 87.09 kg 100/60 mm[Hg] 12/07/2007 Weight Blood Pressure 87.09 kg 124/84 mm[Hg] 11/30/2007 Weight Blood Pressure 88 kg (1) 102/60 mm[Hg] (2) 100/58 mm[Hg] 11/25/2007 Weight Blood Pressure 88 kg 102/70 mm[Hg] 07/27/2007 Weight Blood Pressure 83.01 kg 106/62 mm[Hg] 05/28/2007 Weight Blood Pressure 86.18 kg 106/60 mm[Hg] 04/23/2007 Weight Blood Pressure 85.73 kg 108/64 mm[Hg] 04/01/2007 Weight Blood Pressure 86.18 kg 102/68 mm[Hg] 02/23/2007 Weight Blood Pressure 87.54 kg 110/70 mm[Hg] 01/28/2007 Weight Blood Pressure 89.81 kg 130/70 mm[Hg] 12/24/2006 Weight Blood Pressure 89.81 kg 110/80 mm[Hg] 07/15/2006 Weight Blood Pressure 89.81 kg 108/66 mm[Hg] 06/26/2006 Weight Blood Pressure 87.54 kg 104/80 mm[Hg] 03/04/2006 Weight Blood Pressure 90.26 kg 130/76 mm[Hg] 04/04/2005 Weight Blood Pressure 88.9 kg 138/80 mm[Hg] 02/04/2005 Weight Blood Pressure 90.26 kg 110/70 mm[Hg] 01/01/2005 Weight Blood Pressure 90.26 kg 110/60 mm[Hg] 10/16/2004 Weight Blood Pressure 89.36 kg 110/70 mm[Hg]
--- NOTE | 2021-10-03 11:44 | DI.MAMMO_ITS ---
Exam(s) MAMMO SCREENING EXAM: MAMMO SCREENING CLINICAL HISTORY: screening,z12.39. TECHNIQUE: Bilateral full field digital CC and MLO mammographic images were obtained with 3D tomosyn thesis and utilizing computer aided detection (CAD). COMPARISON: Prior mammograms dating back to 2011, the most recent being May 2020. FINDINGS: There are no CAD designations. There are no new spiculated masses nor malignant appearing microcalcification groups. There is no significant architectural distortion nor skin thickening-retraction. IMPRESSION: No radiographic evidence of malignancy. BI-RADS Category 1 - Negative Breast Density - Category A - Almost entirely fatty Breast density Category C or D implies that the patient has dense breast tissue. Dense breast tissue can make it harder to find cancer on a mammogram. Dense breast tissue is also associated with an incr eased risk of breast cancer. This information about the result of the mammogram report was provided to the patient to raise their awareness. Use this report when you speak with the patient about their risks for breast cancer, which includes their family history. At that time, you may recommend additional screening tests (Ultrasoun d or MRI) as these tests may add significant information. A negative radiographic report should not delay biopsy if a dominant or clinically suspicious mass is present. Up to ten percent of cancers are not identified on mammography. A negative report may reinforce clinical impression. Adenosis and dense breasts may obscure an underlying neoplasm. False positive reports average 6 to 10%. Patient will receive a letter notifying them of these results.
== END 2021-10-03 01:04 ==
PROVIDERS: PCP Internal Medicine; Visit Provider Obstetrics & Gynecology Gynecology
DX: Z12.31 Encounter for screening mammogram for malignant neoplasm of breast (principal)
CPT/HCPCS: 77063; 77067

== ENCOUNTER 2022-09-11 12:33 | Outpatient (REF) | payer BC, SELFPAY ==
--- NOTE | 2022-09-11 12:15 | PAPFT_PTH ---
PATIENT: Makenna Darling LOC: [facility] U#:[id number] AGE/SX: 62/F ROOM: RE09/11/[address]: Lina Sepulveda : 1960 BED: DIS: 09/11/2022 SPEC #: [id number] RECD: 09/11/22 18:08 STATUS: RADHA REQ #: [id number] ELI: 09/11/22 12:[address]: Lina Sepulveda DEPT: [facility] [place] Cytology RECD BY: Jewels Aden ENTERED: 09/11/22 18:09 SP TYPE: PAPFT OTHR DR: Neftali Wood Tissues: 1 - CX/ENDOCX FOR PAP SMEARS Procedures: PAP THIN PREP/UVM Screening HPV DNA PROBE Comments: [id number]
== END 2022-09-11 12:34 | disposition home or self-care (01) ==
LOC: LBN 12:33
PROVIDERS: PCP Internal Medicine; Visit Provider Obstetrics & Gynecology Gynecology
DX: Z12.4 Encounter for screening for malignant neoplasm of cervix (principal); Z11.51 Encounter for screening for human papillomavirus (HPV)
CPT/HCPCS: 88142; 87624

== ENCOUNTER 2023-04-07 02:42 | Outpatient (CLI) | payer BC, SELFPAY ==
--- NOTE | 2023-04-07 08:00 | DI.MAMMO_ITS ---
Exam(s) MAMMO SCREENING EXAM: MAMMO SCREENING CLINICAL HISTORY: screening,Z12.39 TECHNIQUE: Bilateral full field digital CC and MLO mammographic images were obtained with 3D tomosyn thesis and utilizing computer aided detection (CAD). COMPARISON: Available for comparison. FINDINGS: Masses/Architectural Distortion: None seen. Microcalcifications: No suspicious pleomorphic-type are seen. Benign stable calcifications are seen i n both breasts. Skin Thickening/Nipple Retraction: None. IMPRESSION: 1. No significant interval change with no specific features of malignancy noted. 2. Unless there is more urgent need, screening mammography is recommended, as per [employer] guidelines. BI-RADS Category 1 - Negative Breast Density - Category A - Almost entirely fatty Breast density category C or D implies that the patient has dense breast tissue. Dense breast tissue is very common and is not abnormal but dense breast tissue can make it harder to find cancer on a ma mmogram. Also, dense breast tissue may increase their breast cancer risk. This information about the result of the mammogram report was provided to the patient to raise their awareness. Use this report when you speak with the patient about their risks for breast cancer, which includes their family hist ory. At that time, you may recommend for more screening tests (Ultrasound or MRI) as they might be us eful based on their risk. A negative radiographic report should not delay biopsy if a dominant or clinically suspicious mass is present. Up to ten percent of cancers are not identified on mammography. A negative report may reinforce clinical impression. Adenosis and dense breasts may obscure an underlying neoplasm. False positive reports average 6 to 10%. Patient will receive a letter notifying them of these results.
== END 2023-04-07 03:02 ==
LOC: DI 02:42
PROVIDERS: PCP Internal Medicine; Visit Provider Obstetrics & Gynecology
DX: Z12.31 Encounter for screening mammogram for malignant neoplasm of breast (principal)
CPT/HCPCS: 77063; 77067

== ENCOUNTER → 2024-04-28 00:38 | Outpatient (CLI) | payer MEDICARE, BC, SELFPAY ==
--- NOTE | 2024-04-28 15:45 | DI.MAMMO_ITS ---
Exam(s) MAMMO SCREENING EXAM: MAMMO SCREENING CLINICAL HISTORY: screening TECHNIQUE: Bilateral full field digital CC and MLO mammographic images were obtained with 3D tomosyn thesis and utilizing computer aided detection (CAD). COMPARISON: Available for comparison. FINDINGS: Masses/Architectural Distortion: None seen. Microcalcifications: No suspicious pleomorphic-type are seen. Skin Thickening/Nipple Retraction: None. IMPRESSION: 1. No significant interval change with no specific features of malignancy noted. 2. Unless there is more urgent need, screening mammography is recommended, as per [employer] guidelines. BI-RADS Category 1 - Negative Breast Density - Category A - Almost entirely fatty Breast density category C or D implies that the patient has dense breast tissue. Dense breast tissue is very common and is not abnormal but dense breast tissue can make it harder to find cancer on a ma mmogram. Also, dense breast tissue may increase their breast cancer risk. This information about the result of the mammogram report was provided to the patient to raise their awareness. Use this report when you speak with the patient about their risks for breast cancer, which includes their family hist ory. At that time, you may recommend for more screening tests (Ultrasound or MRI) as they might be us eful based on their risk. A negative radiographic report should not delay biopsy if a dominant or clinically suspicious mass is present. Up to ten percent of cancers are not identified on mammography. A negative report may reinforce clinical impression. Adenosis and dense breasts may obscure an underlying neoplasm. False positive reports average 6 to 10%. Patient will receive a letter notifying them of these results.
== END ==
PROVIDERS: PCP Family Medicine; Visit Provider Obstetrics & Gynecology Gynecology
DX: Z12.31 Encounter for screening mammogram for malignant neoplasm of breast (principal)
CPT/HCPCS: 77063; 77067

== ENCOUNTER 2025-04-11 11:13 | Outpatient (REF) | payer MEDICARE, BC, SELFPAY | END 2025-04-11 11:14 | disposition home or self-care (01) | LOC: LBN 11:13 | PROVIDERS: PCP Family Medicine; Visit Provider Obstetrics & Gynecology | DX: Z12.4 Encounter for screening for malignant neoplasm of cervix (principal) | CPT/HCPCS: 88142; 87624 ==

== ENCOUNTER 2025-05-10 03:22 | Outpatient (CLI) | payer MEDICARE, BC, SELFPAY ==
--- NOTE | 2025-05-10 15:05 | DI.MAMMO_ITS ---
Exam(s) MAMMO SCREENING EXAM: MAMMO SCREENING CLINICAL HISTORY: screening TECHNIQUE: Mammograms were interpreted according to the usual protocol including computer analysis with CAD system, tomosynthesis and C-view imaging. COMPARISON: 2014 through 2023 FINDINGS: The breasts are composed of mainly fatty density , Breast Density category A. No suspicious masses or suspicious microcalcifications are seen. No skin thickening or abnormal axillary lymph nodes are seen. There has been no significant change from prior exams. IMPRESSION: BI-RADS Category 1, Negative mammogram Yearly screening mammography is recommended. Breast Density- Category A - The breast are almost entirely fatty. Breast density Category C or D implies that the patient has dense breast tissue. Dense breast tissue can make it harder to find cancer on a mammogram. Dense breast tissue is also associated with an increased risk of breast cancer. This information about the result of the mammogram report was provided to the patient to raise their awareness. Use this report when you speak with the patient about their risks for breast cancer, which includes their family history. At that time, you may recommend additional screening tests (Ultrasound or MRI) as these tests may add significant information. A negative radiographic report should not delay biopsy if a dominant or clinically suspicious mass is present. Up to ten percent of cancers are not identified on mammography. A negative report may reinforce clinical impression. Adenosis and dense breasts may obscure an underlying neoplasm. False positive reports average 6 to 10%. Patient will receive a letter notifying them of these results.
== END 2025-05-10 03:42 ==
LOC: DI 03:22
PROVIDERS: PCP Family Medicine; Visit Provider Obstetrics & Gynecology
DX: Z12.31 Encounter for screening mammogram for malignant neoplasm of breast (principal); R92.313 Mammographic fatty tissue density, bilateral breasts
CPT/HCPCS: 77063; 77067